=== PATIENT | male | born 1990 | race Two or more races ===

== ENCOUNTER 2017-07-19 17:09 | Emergency (ER) | payer MEDICAID ==
[~2017-07-19] VITALS: Ht 170.2 cm; Wt 74.4 kg
[2017-07-19 17:25] VITALS: Ht 170.2 cm; Wt 74.4 kg
[2017-07-19 20:13] VITALS: BP 135/92
== END 2017-07-19 20:13 | disposition home or self-care (01) ==
LOC: ED 17:09
DX: S09.90XA Unspecified injury of head, initial encounter (principal); F41.9 Anxiety disorder, unspecified; W22.8XXA Striking against or struck by other objects, initial encounter; Y93.89 Activity, other specified; Y92.89 Other specified places as the place of occurrence of the external cause; Y99.8 Other external cause status